=== PATIENT | female | born 1980 | race Caucasian/White ===

== ENCOUNTER 2017-04-03 16:03 | Emergency (ER) | payer OTHER ==
[~2017-04-03] VITALS: Ht 162.6 cm; Wt 88.5 kg
[2017-04-03 18:23] LABS: MEAN CORPUSCULAR HEMOGLOBIN 31.2 pg (27.0-33.0); MEAN CORPUSCULAR HGB CONC 33.5 g/dl (32.0-36.5); MEAN CORPUSCULAR VOLUME 93.1 fl (80.0-96.0); RED CELL DISTRIBUTION WIDTH 13.2 % (11.5-14.5); WHITE BLOOD COUNT 10.3 K/mm3 (4.0-10.0)
[2017-04-03 18:33] LABS: ALBUMIN 3.5 GM/DL (3.2-5.2); ALBUMIN/GLOBULIN RATIO 1.06 (1.00-1.93); ALKALINE PHOSPHATASE 92 U/L (45-117); ALT/SGPT 23 U/L (12-78); ANION GAP 8 MEQ/L (8-16); AST/SGOT 15 U/L (15-37); BILIRUBIN,DIRECT < 0.1 MG/DL (0.0-0.2); BILIRUBIN,TOTAL 0.1 MG/DL (0.2-1.0); BLOOD UREA NITROGEN 10 MG/DL (7-18); CALCIUM LEVEL 8.2 MG/DL (8.5-10.1); CARBON DIOXIDE LEVEL 24 MEQ/L (21-32); CHLORIDE LEVEL 106 MEQ/L (98-107); CREATININE FOR GFR 0.74 MG/DL (0.55-1.02); GLOMERULAR FILTRATION RATE > 60.0 (>60); GLUCOSE, FASTING 95 MG/DL (70-105); POTASSIUM SERUM 4.2 MEQ/L (3.5-5.1); SODIUM LEVEL 138 MEQ/L (136-145); TOTAL PROTEIN 6.8 GM/DL (6.4-8.2)
[2017-04-03 18:38] LABS: METHADONE URINE NEGATIVE (NEGATIVE)
[2017-04-03] MEDS ORDERED: NICOTINE 21MG/24HR 1 EA TRANSDERMAL TD ONE (19:30)
[2017-04-03 22:15] VITALS: BP 159/85
== END 2017-04-03 22:17 | disposition home or self-care (01) ==
LOC: M ED 20:34
DX: F43.0 Acute stress reaction (principal)
CPT/HCPCS: 80048; 80076; 80306; 84443; 85027; 99282; G0480

== ENCOUNTER 2025-02-27 11:11 | Emergency (ER) | payer OTHER, SELFPAY ==
[~2025-02-27] VITALS: Ht 165.1 cm; Wt 100.8 kg
[2025-02-27] MEDS ORDERED: ACET500T15 PO (11:23)
[2025-02-27 13:58] VITALS: BP 126/70; TEMP 98.9; O2SAT 95
== END 2025-02-27 14:02 | disposition home or self-care (01) ==
LOC: M ED 11:11
DX: M25.562 Pain in left knee (principal)